=== PATIENT | male | born 1975 | race Caucasian/White ===

== ENCOUNTER 2024-05-17 17:58 | Emergency (ER) | payer OTHER, SELFPAY ==
[2024-05-17 18:01] VITALS: BP 155/104; PULSE 93; RESP 18; TEMP 37; O2SAT 100; BMI 22.8
--- NOTE | 2024-05-17 18:13 | EKG_ITS ---
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
--- NOTE | 2024-05-17 19:15 | ED_ITS ---
HPI - Extremity Problem General Chief complaint: Extremity Problem,Nontraumatic Stated complaint: radiating shoulder px, labored breathing Time Seen by Provider: 05/17/24 18:19 History of Present Illness HPI Narrative: Patient is a male with a history of recent COVID-19 infection who presents with acute onset of severe left trapezius pain and swelling. The patient reports that the pain began this morning after bending down to flip the lid on an ammo can, following a workout the previous night. . The patient has taken Motrin and Tylenol with minimal relief and applied Salonpas. He reports the area became red and swollen by lunchtime. He denies fever, chills, history of infections, diabetes, cardiac problems, or IV drug use. He has a history of knee replacement surgery and hernia repair. Medications: Motrin, Tylenol, Salonpas. Past Medical History: Recent COVID-19 infection, knee replacement, hernia repair. Surgical History: Knee replacement, hernia repair. Related Data Home Medications Medication Instructions Recorded Confirmed acetaminophen 325 mg tablet 2 tab PO Q4H ##0 06/19/17 aspirin 325 mg tablet 325 mg PO QDAY ##0 06/19/17 docusate sodium 250 mg capsule 250 mg PO BIDP PRN ##0 06/19/17 fluticasone propionate 50 1 spray intranasal BID ##0 06/19/17 mcg/actuation nasal spray,suspension (Flonase Allergy Relief) lorazepam 1 mg tablet (Ativan) 1 mg PO BIDP PRN ##0 06/19/17 sildenafil 50 mg tablet (Viagra) 50 mg PO QDAY ##0 06/19/17 trazodone 50 mg tablet 50 mg PO HS ##0 06/19/17 valacyclovir 1 gram tablet 2 gm PO BID ##0 06/19/17 (Valtrex) lorazepam 1 mg tablet (Ativan) 1 mg PO BIDP PRN ##0 06/23/17 Previous Rx's Medication Instructions Recorded cyclobenzaprine 10 mg tablet 10 mg PO TID #20 tabs 05/17/24 sulfamethoxazole 800 1 tab PO BID #14 tabs 05/17/24 mg-trimethoprim 160 mg tablet (Bactrim DS) Allergies Allergy/AdvReac Type Severity Reaction Status Date / Time erythromycin base AdvReac Unknown NAUSEA Unverified 06/28/17 12:50 [ERYTHROMYCIN BASE] Review of Systems Review of Systems ROS Unobtainable: All systems reviewed & are unremarkable except as noted in HPI and below Patient History Social History Smoking Status: Unknown if ever smoked Smoking Status: Unknown if ever smoked Exam Narrative Exam Narrative: General: Well appearing, well nourished, in no distress. Patient appears in pain. Skin: Good turgor, no rash, unusual bruising or prominent lesions. No discrete abscess noted, mild cobblestoning of subcutaneous tissue. Head: Normocephalic, atraumatic. HEENT: Conjunctiva clear, EOM intact, PERRL, Mucous membranes moist. Neck: Supple, normal ROM. Heart: Regular rate and rhythm, no murmur or gallop or rubs. Lungs: Clear to auscultation. No rales, rhonchi, or wheezes. Abdomen: Soft and nontender. Bowel sounds normal. No mass or hernia. Back: Spine normal without deformity or tenderness, no CVA tenderness. Extremities: No deformities, edema. Peripheral pulses intact. Musculoskeletal: Redness and swelling over the left trapezius muscle, mild swelling to the area, blanching erythema, total area of swelling approximately 6 cm by 4 cm. Neurologic: CN 2-12 normal. Normal sensation and motor exam. Reports shooting pain down to fingertips. Psychiatric: Oriented X3. Normal mood and affect. Initial Vital Signs Initial Vital Signs: Vital Signs Temperature 98.6 F 05/17/24 18:01 Pulse Rate 93 H 05/17/24 18:01 Respiratory Rate 18 05/17/24 18:01 Blood Pressure 155/104 H 05/17/24 18:01 Pulse Oximetry 100 05/17/24 18:01 Oxygen Delivery Method Room Air 05/17/24 18:01 Course Orders Ordered: Discontinued Medications Hydrocodone Bitart/Acetaminophen (Hydrocodone/Acet 5/325 Tablet) 1 tab PO NOW ONE Stop: 05/17/24 19:14 Last Admin: 05/17/24 19:19 Dose: 1 tab Documented By: IRVING Diazepam (Diazepam 5 Mg Tablet) 5 mg PO NOW ONE Stop: 05/17/24 21:58 Last Admin: 05/17/24 22:04 Dose: 5 mg Documented By: IRVING Ketorolac Tromethamine (Ketorolac 30 Mg/Ml Vial) 30 mg IM NOW ONE Stop: 05/17/24 21:58 Last Admin: 05/17/24 22:04 Dose: 30 mg Documented By: IRVING Trimethoprim/Sulfamethoxazole (Trimeth/Sulfa 160/800 (Ds) Tablet) 1 tab PO NOW ONE Stop: 05/17/24 19:16 Last Admin: 05/17/24 19:18 Dose: 1 tab Documented By: IRVING Vital Signs Vital signs: Vital Signs - 8 hr 05/17/24 18:01 Temperature 98.6 F Pulse Rate 93 H Respiratory Rate 18 Blood Pressure 155/104 H Pulse Oximetry 100 Oxygen Delivery Method Room Air MDM - Extremity (Nontraumatic) Lab Data 05/17/24 19:37 05/17/24 19:37 Labs: Lab Results 05/17/24 Range/Units 19:37 WBC 15.3 H (4.5-11.0) X10^3/uL RBC 4.70 (4.5-5.9) X10^6/uL Hgb 14.3 (13.5-17.5) g/dL Hct 41.6 (41-53) % MCV 88.5 (80-100) fL MCH 30.4 (26-34) PG MCHC 34.4 (30-36) % RDW 12.9 (11.6-14.8) % Plt Count 247 (150-400) X10^3/uL Neut % (Auto) 75.3 H (50-75) % Lymph % (Auto) 17.7 L (25-40) % [place] % (Auto) 5.5 (3-14) % Eos % (Auto) 1.0 L (2-4) % Baso % (Auto) 0.5 (0-2) % Neut # (Auto) 12161 H (0164-2733) /uL Lymph # (Auto) 2700 (1845-8638) /uL [place] # (Auto) 800 (0-900) /uL Eos # (Auto) 100 (0-450) /uL Baso # (Auto) 100 (0-100) /uL Sodium 139 (137-145) mmol/L Potassium 3.0 L (3.4-5.1) mmol/L Chloride 101 (98-107) mmol/L Carbon Dioxide 26 (22-32) mmol/L BUN 21 H (9-20) mg/dL Creatinine 0.71 (0.66-1.25) mg/dL Estimated GFR > 60 (>60) mL/min BUN/Creatinine Ratio 29.6 H (6-22) Glucose 77 (70-100) mg/dL Calcium 9.7 (8.4-10.2) mg/dL Total Bilirubin 0.5 (0.2-1.3) mg/dL AST 46 (17-59) IU/L ALT 39 (<50) IU/L Alkaline Phosphatase 75 (38-126) U/L Total Creatine Kinase 388 H (55-170) U/L Total Protein 8.2 (6.3-8.2) g/dL Albumin 4.9 (3.5-5.0) g/dL Globulin 3.3 (1.7-4.1) g/dL Albumin/Globulin Ratio 1.5 (1.0-2.8) patient's lab data was reviewed which is concerning for leukocytosis of 15, otherwise no significant abnormalities requiring ED intervention. Patient did have mildly elevated CK. ECG Data Interpretation: on independent evaluation of patient's EKG there is normal sinus rhythm with no signs of ST elevation, depression or significant abnormalities, no previous for comparison on this study, no findings meeting STEMI criteria no signs of arrhythmia no significant abnormalities to intervals MDM Narrative Medical decision making narrative: 49-year-old male coming in for left-sided trapezius pain erythema and swelling to the area without fevers chills or significant vital sign abnormalities INITIAL EVALUATION AND PLAN: - Suspected superficial infection of the left trapezius muscle. - Administer a dose of antibiotics. - Obtain blood work including CK level. - Jose Antonio the area of erythema to monitor for progression. - Provide pain management with a one-time dose of oxycodone. - Educate the patient on signs of worsening infection and advise return if symptoms spread or do not improve. - Differential diagnosis includes but is not limited to: cellulitis, abscess, myositis muscle strain, deep tissue infection. - Patient continues to have pain after doses of oxycodone, patient given dose of antibiotics here in the emergency department, we had a discussion about obtaining CT imaging given patient continues to have pain with no clear source given ultrasound did not show obvious cellulitis or abscess, patient at this time is refusing a CT scan as he does not want an IV and states that he is done getting poked by our staff. I discussed the risks of not obtaining the CT scan including missing a deep space abscess, potential myositis, phlegmon or other dangerous pathology that would be identified on CT scan. Patient states that he understands this but absolutely will not stay to have a IV done at this time. At this time patient is alert oriented and capable of making his own decisions however I warned him that this is against my medical advice, he accepts this and states that he will return to the emergency department if he does not have improving symptoms with the antibiotics. All questions were answered prior to discharge patient was given dose of antibiotics and a prescription for antibiotics and encouraged to return to the emergency department for imaging. Discharge Plan Departure Patient Disposition: Left Against Medical Advice Clinical Impression: Cellulitis Instructions: DI for Cellulitis -- Adult Activity Restrictions/Additional Instructions: you were seen in the emergency department today for swelling above her trapezius with concern for potential infection. We talked about obtaining imaging but this was deferred at this time if you have worsening redness, pain, fevers, chills please return to the ED for re-evaluation and potential CT scan. Please take your antibiotics as prescribed in order to help with potential infectious symptoms Prescriptions: New sulfamethoxazole-trimethoprim [Bactrim DS] 800-160 mg tablet 1 tab PO BID Qty: 14 0RF cyclobenzaprine 10 mg tablet 10 mg PO TID Qty: 20 0RF No Action aspirin 325 MG tablet 325 mg PO QDAY Qty: 0 lorazepam [Ativan] 1 MG tablet 1 mg PO BIDP PRNQty: 0 fluticasone propionate [Flonase Allergy Relief] 9.9 ML spray,suspension 1 spray Intranasal BID Qty: 0 docusate sodium 250 MG capsule 250 mg PO BIDP PRNQty: 0 trazodone 50 MG tablet 50 mg PO HS Qty: 0 sildenafil [Viagra] 50 MG tablet 50 mg PO QDAY Qty: 0 acetaminophen 325 MG tablet 2 tab PO Q4H Qty: 0 valacyclovir [Valtrex] 1,000 MG tablet 2 gm PO BID Qty: 0 lorazepam [Ativan] 1 MG tablet 1 mg PO BIDP PRNQty: 0 Referrals: Miscellaneous,Doctor, MD [Primary Care Provider] - Stand Alone Forms: Patient Portal/API, Against Medical Advice
[2024-05-17] MEDS: TRIMETH/SULFA 160/800 (DS) TABLET 1 TAB PO (19:18)
[2024-05-17] MEDS: HYDROCODONE/ACET 5/325 TABLET 1 TAB PO (19:19)
[2024-05-17 19:43] LABS: Add Manual Diff / Slide Review NO; Basophils Absolute Auto 100 /uL (0-100); Basophils Percent Auto 0.5 % (0-2); Eosinophils Absolute Auto 100 /uL (0-450); Hematocrit 41.6 % (41-53); Hemoglobin 14.3 g/dL (13.5-17.5); Lymphocytes Absolute Auto 2700 /uL (1100-4500); Lymphocytes Percent Auto 17.7 % (25-40); Mean Corpuscular HGB Conc 34.4 % (30-36); Mean Corpuscular Hemoglobin 30.4 PG (26-34); Mean Corpuscular Volume 88.5 fL (80-100); Monocytes Absolute Auto 800 /uL (0-900); Monocytes Percent Auto 5.5 % (3-14); Neutrophils Absolute Auto 11500 /uL (1500-7000); Neutrophils Percent Auto 75.3 % (50-75); Platelet Count 247 X10^3/uL (150-400); Red Cell Distribution Width 12.9 % (11.6-14.8); White Blood Cell Count 15.3 X10^3/uL (4.5-11.0)
[2024-05-17 19:55] LABS: Alanine Aminotransferase 39 IU/L (<50); Albumin 4.9 g/dL (3.5-5.0); Albumin Globulin Ratio 1.5 (1.0-2.8); Alkaline Phosphatase 75 U/L (38-126); Aspartate Aminotransferase 46 IU/L (17-59); BUN Creatinine Ratio 29.6 (6-22); Bilirubin Total 0.5 mg/dL (0.2-1.3); Blood Urea Nitrogen 21 mg/dL (9-20); Calcium 9.7 mg/dL (8.4-10.2); Carbon Dioxide 26 mmol/L (22-32); Chloride 101 mmol/L (98-107); Creatine Kinase 388 U/L (55-170); Estimated Glomerular Filt Rate > 60 mL/min (>60); Globulin 3.3 g/dL (1.7-4.1); Glucose 77 mg/dL (70-100); HEMOLYSIS < 15 (0-50); Sodium 139 mmol/L (137-145); Total Protein 8.2 g/dL (6.3-8.2)
[2024-05-17] MEDS: diazePAM 5 MG TABLET PO (22:04)
[2024-05-17] MEDS: KETOROLAC 30 MG/ML VIAL IM (22:04)
[2024-05-17 22:08] VITALS: BP 171/100
[2024-05-17 22:09] VITALS: PULSE 83; O2SAT 100
== END 2024-05-17 22:58 | disposition left against medical advice (07) ==
PROVIDERS: Emergency Provider Emergency Medicine
DX: L03.114 Cellulitis of left upper limb (principal)
CPT/HCPCS: 80053; 82550; 85025; 87040; 93005; 96372; 99283; 99284; J1885

== ENCOUNTER → 2024-05-28 08:21 | Outpatient (CLI) | payer OTHER, SELFPAY ==
--- NOTE | 2024-05-28 08:22 | DI.MRI.S_ITS ---
PROCEDURE: MR SHOULDER LT WO CON INDICATIONS: pain in left shoulder TECHNIQUE: Noncontrast oblique coronal T2 fast spin echo with fat saturation, oblique sagittal T1 spin echo and T2 fast spin echo with fat saturation, axial T1 spin echo and T2 fast spin echo with fat saturation through the shoulder. COMPARISON: None. FINDINGS: Image quality: Excellent. Rotator cuff: Mild supraspinatus tendinosis low-grade bursal surface fraying. Infraspinatus, teres minor, and subscapularis tendons are intact. Rotator cuff musculature is normal in bulk. Bones and bursae: No acute trabecular bone injury or fracture. Small chronic traction cystic changes are seen at the posterior superior humeral head and lesser tuberosity near the rotator cuff tendon insertions. Focal subchondral cystic changes at the posterior inferomedial humeral head. Moderate degenerative changes at the acromioclavicular joint with subchondral edema, subchondral cystic changes, and small marginal osteophytes. Trace fluid in the subacromial/subdeltoid bursa. No significant glenohumeral effusion. Capsule and soft tissues: No acute displaced labral tear. Proximal biceps long head tendon demonstrates mild tendinosis. There is partial effacement of the fat signal in the rotator interval. The anterior band of the inferior glenohumeral ligament appears thickened. IMPRESSION: 1. Mild supraspinatus tendinosis with low-grade bursal surface fraying. No high-grade or full-thickness rotator cuff tendon tearing is seen. 2. Mild proximal biceps long head tendinosis. 3. 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 4. Partial effacement of the rotator interval fat and mild thickening of the inferior glenohumeral ligament are nonspecific, but can be seen in the setting of the clinical syndrome of adhesive capsulitis. Approved by: Darrell Strong M.D. on 05/28/2024 at 15:31
== END ==
PROVIDERS: PCP Nurse Practitioner Family; Referring Provider Nurse Practitioner Family; Visit Provider Nurse Practitioner Family
DX: M19.012 Primary osteoarthritis, left shoulder (principal); M25.512 Pain in left shoulder
CPT/HCPCS: 73221